=== PATIENT | male | born 1960 | race African-American/Black ===

== ENCOUNTER 2017-08-29 12:02 | Outpatient (CLI) | payer OTHER | END 2017-08-29 12:03 | disposition home or self-care (01) | LOC: BICRAD 12:02 | PROVIDERS: ATTEND Internal Medicine | DX: Z02.71 Encounter for disability determination (principal); S49.91XA Unspecified injury of right shoulder and upper arm, initial encounter ==

== ENCOUNTER 2019-04-08 09:49 | Emergency (ER) | payer SELFPAY | END 2019-04-08 10:03 | disposition home or self-care (01) | LOC: ERS 09:49 | DX: J11.1 Influenza due to unidentified influenza virus with other respiratory manifestations (principal); K21.9 Gastro-esophageal reflux disease without esophagitis | CPT/HCPCS: 87804; 99283 ==

== ENCOUNTER 2019-07-03 11:41 | Emergency (ER) | payer SELFPAY ==
--- NOTE | 2019-07-03 12:46 | RAD ---
PORTABLE CHEST: Date: 07/03/2019 HISTORY: Lightheaded, night sweats. FINDINGS: Lungs are clear. No infiltrate. No evidence of vascular congestion or effusion. Heart size normal. There is separation of the right AC joint, which is new when compared to a right shoulder film of 201 8. Recommend clinical correlation. IMPRESSION: 1. No acute lung finding. 2. Separation of right AC joint. POS: [facility]
[2019-07-03 12:56] LABS: #Eosinphils 0.1 thou/uL (0.0-0.7); #Monocytes 0.4 thou/uL (0.11-0.59); #Neutrophils 4.6 thou/uL (1.40-6.50); %Basophils 0.6 % (0.0-1.0); %Eosinophils 1.9 % (0.0-10.0); %Lymphocytes 16.1 % (21.0-51.0); %Monocytes 6.9 % (0.0-10.0); %Neutrophils 74.5 % (42.0-75.0); Hemoglobin 15.1 g/dL (14.0-18.0); Mean Corpuscular HGB CONC 33.5 g/dL (32.0-36.0); Mean Corpuscular Hemoglobin 31.8 pg (27.0-31.0); Mean Platelet Volume 7.1 fL (7.4-10.4); Platelet Count 274 thou/uL (130-400); RBC Distribution Width 11.9 % (11.5-14.5); Red Blood Cell (RBC) Count 4.75 mill/uL (4.70-6.10); White Blood Cell (WBC) Count 6.1 thou/uL (4.8-10.8)
[2019-07-03 13:19] LABS: ALT (SGPT) 12 U/L (8-55); AST (SGOT) 13 U/L (5-34); Alkaline Phosphatase 43 U/L (40-110); Anion Gap 13 mmol/L (10-20); BUN (Urea Nitrogen) 9 mg/dL (8.4-25.7); Calc. Creatinine Clearance 0 mL/min (70-130); Carbon Dioxide 25 mmol/L (22-29); Chloride 106 mmol/L (98-107); Estimated GFR-MDRD Greater than 90; Globulin 2.3 g/dL (2.4-3.5); Glucose 102 mg/dL (70-105); Potassium 4.1 mmol/L (3.5-5.1); Protein, Total 6.3 g/dL (6.0-8.3); Sodium 140 mmol/L (136-145)
--- NOTE | 2019-07-04 14:57 | EKG ---
Test Reason : Blood Pressure : / mmHG Vent. Rate : 075 BPM Atrial Rate : 075 BPM P-R Int : 148 ms QRS Dur : 084 ms QT Int : 374 ms P-R-T Axes : 051 037 055 degrees QTc Int : 417 ms Normal sinus rhythm Normal ECG Confirmed by AMY WISDOM MD ([id number]), restaurant expeditor YOUSIF LUU ([id number]) on 07/04/2019 2:56:56 PM Referred By: Confirmed By:AMY WISDOM MD
== END 2019-07-03 14:09 | disposition home or self-care (01) ==
LOC: ERS 11:41
DX: R53.1 Weakness (principal); K21.9 Gastro-esophageal reflux disease without esophagitis
CPT/HCPCS: 36415; 71045; 80053; 84484; 85025; 93005